=== PATIENT | male | born 1960 | race Hispanic/Latino ===

== ENCOUNTER 2016-07-23 01:17 | Emergency (ER) | payer MEDICAID ==
[2016-07-23 01:25] VITALS: BMI 25.7
[2016-07-23 01:27] VITALS: RESP 18; O2SAT 99
[2016-07-23 01:32] VITALS: BP 118/64; PULSE 62; TEMP 97.7
--- NOTE | 2016-07-23 01:41 | ED PDOC ---
Arrival/HPI - General Chief Complaint: Wound Check Time Seen by Provider: 07/23/16 01:20 Historian: Patient - History of Present Illness Narrative History of Present Illness (Text): 07/23/16 01:37 Lula Cotton is a 56 year old male who presents to the emergency department for suture removal. Patient had 3 stitches placed on the back of the neck 4 weeks ago. Denies any fever, chills, surrounding erythema/discharge, chest pain , difficulty breathing, or any other complaints at this time. Time/Duration: > week (1 month ) Symptom Course: Improving Severity Level: Mild Past Medical History - Provider Review Nursing Documentation Reviewed: Yes - Renal Hx Kidney Stones: Yes - Musculoskeletal/Rheumatological Hx Falls: No - Psychiatric Hx Substance Use: No - Surgical History Hx Orthopedic Surgery: Yes Family/Social History - Physician Review Nursing Documentation Reviewed: Yes Family/Social History: No Known Family HX Smoking Status: Never Smoked Hx Alcohol Use: No Hx Substance Use: No Allergies/Home Meds Allergies/Adverse Reactions: Allergies No Known Allergies Allergy (Verified 10/26/15 13:31) Home Medications: Home Meds Medication Instructions Recorded Confirmed No Known Home Med 10/26/15 10/26/15 Review of Systems - Physician Review All systems were reviewed & negative as marked: Yes - Review of Systems Constitutional: Normal. absent: Fatigue, Fevers Respiratory: Normal. absent: SOB, Cough Cardiovascular: Normal. absent: Chest Pain Musculoskeletal: Other (3 stitches on back of neck. ) Neurological: Normal. absent: Headache, Dizziness Psychiatric: Normal Physical Exam Vital Signs Reviewed: Yes Vital Signs Temp Pulse Resp BP Pulse Ox 07/23/16 01:25 97.7 F 62 18 118/64 99 Temperature: Afebrile Blood Pressure: Normal Pulse: Regular Respiratory Rate: Normal Appearance: Positive for: Well-Appearing, Non-Toxic, Comfortable Pain Distress: None Mental Status: Positive for: Alert and Oriented X 3 - Systems Exam Head: Present: Atraumatic, Normocephalic Pupils: Present: PERRL Conjunctiva: Present: Normal Neck: Present: Other (3 stitches on back of neck. Wound healing without any swelling, erythema or discharge ) Respiratory/Chest: Present: Clear to Auscultation, Good Air Exchange. No: Respiratory Distress, Accessory Muscle Use Cardiovascular: Present: Regular Rate and Rhythm, Normal S1, S2. No: Murmurs Abdomen: Present: Normal Bowel Sounds. No: Tenderness, Distention, Peritoneal Signs Upper Extremity: Present: Normal Inspection. No: Cyanosis, Edema Lower Extremity: Present: Normal Inspection. No: Edema Neurological: Present: GCS=15, CN II-XII Intact, Speech Normal, Motor Func Grossly Intact, Normal Sensory Function Skin: Present: Warm, Dry, Normal Color. No: Rashes Psychiatric: Present: Alert, Oriented x 3, Normal Insight, Normal Concentration Medical Decision Making ED Course and Treatment: 07/23/16 01:46 Impression: A 56 year old male who presents to the emergency room for suture removal. Has 3 stitches to the back of neck placed 4 weeks prior. Plan: -- Suture removal -- Reassess and disposition Progress Notes: 07/23/16 01:48 Wound healing properly without any signs of infection. Patient is stable for discharge. Will discharge patient home. Advised to follow up with PMD within few days and present to emergency room for new or worsening concerns. - Scribe Statement Alexander Gillis Provider Attestation: All medical record entries made by the Scribe were at my direction and personally dictated by me. I have reviewed the chart and agree that the record accurately reflects my personal performance of the history, physical exam, medical decision making, and the department course for this patient. I have also personally directed, reviewed, and agree with the discharge instructions and disposition. Disposition/Present on Arrival - Present on Arrival Any Indicators Present on Arrival: No History of DVT/PE: No History of Uncontrolled Diabetes: No Urinary Catheter: No History of Decub. Ulcer: No History Surgical Site Infection Following: None - Disposition Have Diagnosis and Disposition been Completed?: Yes Diagnosis: Visit for wound care, Visit for suture removal Disposition: HOME/ ROUTINE Disposition Time: 01:55 Condition: GOOD
== END 2016-07-23 01:58 | disposition home or self-care (01) ==
LOC: ED 01:17
DX: Z48.02 Encounter for removal of sutures (principal)